=== PATIENT | female | born 1970 | race Caucasian/White ===

== ENCOUNTER 2019-01-01 10:17 | Day surgery (SDC) | payer BC ==
[~2019-01-01 10:17] MED LIST: ACETAMINOPHEN 1,000 MG/100 ML BTL IVPB ONE
[2019-01-01] MEDS ORDERED: KETOROLAC 30 MG/ML VIAL IVP ONE (10:18)
[2019-01-01] MEDS ORDERED: LIDOCAINE 2% MDV (20MG/ML) 20ML VIAL IV ONE (10:18)
[2019-01-01] MEDS ORDERED: MIDAZOLAM HCL 2MG/2ML VIAL IV ONE (10:18)
[2019-01-01] MEDS ORDERED: PROPOFOL 10 MG/ML VIAL IV ONE (10:18)
[2019-01-01] MEDS ORDERED: RINGERS SOLUTION,LACTATED 1,000 ML IV ONE (10:58)
[2019-01-01] MEDS ORDERED: LIDOCAINE 1% W/EPI 1:200,000 MPF 30ML SQ ONE (12:14)
--- NOTE | 2019-01-03 09:50 | Operative Note ---
DATE OF SURGERY: 01/01/2019 PREOPERATIVE DIAGNOSIS: Left carpal tunnel syndrome. POSTOPERATIVE DIAGNOSIS: Left carpal tunnel syndrome. OPERATION: Left carpal tunnel release. STAFF SURGEON: Cesar Amaral MD ANESTHESIA: Local with monitored anesthesia care. PREPARATION: Chloraprep. INDIVIDUAL CONSIDERATIONS: None. PROCEDURE: The patient was taken to the operating room and placed supine on the operating room table. She had IV sedation placed. Her left arm was prepped and draped in the usual fashion. The patient had 1% lidocaine with epinephrine infiltrated along the longitudinal wrist crease volarly. The limb was elevated and tourniquet was inflated to 250 mmHg. Sharp dissection carried down through skin and subcutaneous tissues. Small veins were coagulated with a Bovie. Sharp dissection carried down through the palmar fascia and through a small adductor brevis and then carefully through the transverse metacarpal fascia distally to the superficial arch and recurrent branch and proximally to the antebrachial fascia. The median nerve was obviously hourglass. There were no tumors within the carpal tunnel. After irrigation, tourniquet was let down and hemostasis was obtained with a Bovie and compression. The skin was then approximated with interrupted 4-0 nylon in a vertical mattress fashion. A sterile bulky compressive hand dressing was applied. The patient tolerated procedure well. Needle and sponge counts were correct. Estimated blood loss was minimal. She was taken back to recovery in good condition. There were no complications. [facility]
== END 2019-01-01 12:55 | disposition home or self-care (01) ==
LOC: SUR 10:17
PROVIDERS: ATTEND Orthopaedic Surgery
DX: G56.02 Carpal tunnel syndrome, left upper limb (principal); F17.210 Nicotine dependence, cigarettes, uncomplicated
CPT/HCPCS: 64721; 01810; J1885; J7120

== ENCOUNTER 2019-01-15 11:35 | Day surgery (SDC) | payer BC ==
[2019-01-15] MEDS ORDERED: KETOROLAC 30 MG/ML VIAL IVP ONE (11:36)
[2019-01-15] MEDS ORDERED: LIDOCAINE 2% MDV (20MG/ML) 20ML VIAL IV ONE (11:36)
[2019-01-15] MEDS ORDERED: MIDAZOLAM HCL 2MG/2ML VIAL IV ONE (11:36)
[2019-01-15] MEDS ORDERED: PROPOFOL 10 MG/ML VIAL IV ONE (11:36)
[2019-01-15] MEDS ORDERED: DIAZEPAM 5 MG TABLET PO ONE (12:08)
[2019-01-15] MEDS ORDERED: RINGERS SOLUTION,LACTATED 1,000 ML IV ONE (12:15)
[2019-01-15] MEDS ORDERED: LIDOCAINE 1% W/EPI 1:200,000 MPF 30ML SQ ONE (13:34)
--- NOTE | 2019-01-16 09:41 | Operative Note ---
DATE OF SURGERY: 01/15/2019 PREOPERATIVE DIAGNOSIS: Right carpal tunnel syndrome. POSTOPERATIVE DIAGNOSIS: Right carpal tunnel syndrome. OPERATION: Right carpal tunnel release. STAFF SURGEON: Cesar Amaral MD ANESTHESIA: Local with sedation. PREPARATION: Chloraprep. INDIVIDUAL CONSIDERATIONS: None. PROCEDURE: The patient was taken to the operating room and placed supine on the operating room table. Her right arm was prepped and draped in the usual fashion. The patient was given IV sedation and then the longitudinal wrist crease was infiltrated with 1% lidocaine with epinephrine. The limb was elevated. Tourniquet was inflated to 250 mmHg. The patient had an incision along the longitudinal wrist crease just barely crossing at a 45-degree ulnarly. Sharp dissection carried down through skin and subcutaneous tissues. Sharp dissection carried down through the palmar fascia through a small adductor brevis and then through the transverse metacarpal fascia distally to the recurrent branch of the superficial arch and proximally to the antebrachial fascia. The median nerve was obviously compressed, contused, hourglass, and reddened. There were no tumors present. Tourniquet was let down and hemostasis was obtained with a Bovie. After irrigation, the skin was approximated with interrupted 4-0 nylon in a vertical mattress fashion. A sterile bulky compressive hand dressing was applied. The patient tolerated the procedure well. Needle and sponge counts were correct. Estimated blood loss was minimal. She was taken back to recovery in good condition. There were no complications. [facility]
== END 2019-01-15 14:17 | disposition home or self-care (01) ==
LOC: SUR 11:35
PROVIDERS: ATTEND Orthopaedic Surgery
DX: G56.01 Carpal tunnel syndrome, right upper limb (principal); F17.210 Nicotine dependence, cigarettes, uncomplicated
CPT/HCPCS: 64721; 01810; J3490; J1885; J7120